=== PATIENT | male | born 1935 | race Two or more races ===

== ENCOUNTER 2025-04-23 18:47 | Emergency (ER) | payer MEDICARE, MEDICAID, SELFPAY ==
[2025-04-23 18:48] VITALS: BP 145/73; PULSE 95; RESP 18; TEMP 36.4; O2SAT 96; BMI 21.7
--- NOTE | 2025-04-23 18:53 | EKG_ITS ---
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
--- NOTE | 2025-04-23 18:53 | XR_ITS ---
Examination: AP chest single view Technique one AP portable sitting chest single view Date and time: April 23 [id number] hrs. Indications: Syncopal episode today. Findings: Mild enlargement cardiac contour Ectatic enlarged thoracic aorta. No pneumonia or pulmonary edema Moderate osteopenia Impression: No pneumonia or pulmonary edema
--- NOTE | 2025-04-23 18:53 | PD.EDADULT ---
ED General RME/HPI General Chief complaint: Weakness Stated complaint: WEAKNESS Time Seen by Provider: 04/23/25 18:52 Arrival date/time: 04/23/25 18:47 CC: Near syncopal episode HPI patient presents to the ER via EMS after being observed pale and pasty in his vehicle when he pulled up to a family gathering. Family was called 911 patient states he has A-fib and diabetes and high blood pressure and takes medications however he states he was lightheaded and dizzy in the car not feeling well. EMS report initially seeing him in such extent with hypotension, during transport the patient became more animated and pressures improved. Currently the patient is awake alert oriented nontoxic-appearing not in any acute distress saying that all the symptoms have resolved. Related Data Previous Rx's ?Medication ?Instructions ?Recorded permethrin 5 % topical cream 1 appln TOP UD ##2 07/07/17 acetaminophen 500 mg capsule 500 mg PO Q6H PRN fever or pain 12/03/17 #30 caps ibuprofen 600 mg tablet 600 mg PO Q8H PRN fever or pain 12/03/17 #30 tabs meclizine 25 mg tablet 25 mg PO BID #14 tabs 02/20/21 meclizine 50 mg tablet (Antivert) 50 mg PO BID PRN vertigo #20 tabs 10/25/23 Allergies Allergy/AdvReac Type Severity Reaction Status Date / Time No Known Allergies Allergy Verified 10/25/23 08:38 Review of Systems Review of Systems Narrative Review of Systems: GEN: No fever, no chills, no weight loss EYES: No discharge, no visual changes, no pain HEENT: No ear pain, no congestion, no sore throat PULM: No shortness of breath, no cough, no congestion CV: No chest pain, no dyspnea on exertion, no palpitations GI: No nausea, no vomiting, no diarrhea, no pain, no constipation : No frequency, no urgency, no dysuria MUSC/SKEL: No joint pain, no back pain SKIN: No rash PSYCH: No hallucinations, no depression HEME/LYMPH: No easy bleeding or bruising tendencies NEURO: + weakness, + dizziness, no headache Past Medical History Past Medical History CARDIAC: Positive Hypercholesterolemia and Hypertension; Negative Congestive Heart Failure RESPIRATORY: Negative Chronic Obstructive Pulmonary Disease (COPD) or Asthma GENITOURINARY: Negative Renal Disease ENDOCRINE: Negative Diabetes Mellitus Type 1 or Diabetes Mellitus Type 2 Social History SMOKING STATUS: Never smoker ED Exam Narrative Physical exam: [General: Obese not in any acute distress Head normocephalic HEENT: Eyes pupils are PERRLA EOMs are intact mouth poor dentition dry swallow symmetrical phonation normal, all of the subsystems of HEENT are within acceptable limits Neck is supple nontender no JVD no edema Chest equal chest rise nontender to palpation Respiratory: Clear to auscultation no wheezes crackles or rubs CV: Rate rhythm is regular no murmurs rubs or clicks Abdomen is distended secondary to body habitus soft nontender no masses positive bowel sounds all 4 quadrants Back: No CVA tenderness no spinous process tenderness from cervical spine thoracic and lumbar spine Skin: Intact no petechiae rash induration ulceration or crepitus Extremities: Moving all extremity against resistance cap refill less than 2 seconds neurosensory intact. No lower extremity edema. Neuro: Awake alert oriented x3 Glascow coma 15 no focal deficits] Course Course Course Narrative: Repeat CMP shows improvement in the renal insufficiency there is no other acute finding patient be discharged home with weakness and renal insufficiency. Quality Measures none Orders Category Date Time Status EKG (ED ONLY) *Do not use* NOW Care 04/23/25 18:53 Completed EKG (ED Only) Stat Exams 04/23/25 18:53 Draft XR chest 1V Stat Exams 04/23/25 18:53 Completed B-Type Natriuretic Peptide Stat Lab 04/23/25 19:33 Completed CBC Stat Lab 04/23/25 19:33 Completed CMP [Comprehensive Metabolic Panel] Stat Lab 04/23/25 22:21 Results Comprehensive Metabolic Panel Stat Lab 04/23/25 19:33 Completed Drug Screen,Urine Stat Lab 04/23/25 20:34 Completed LDH (Lactate Dehydrogenase) Stat Lab 04/23/25 19:33 Completed Magnesium Stat Lab 04/23/25 19:33 Completed Partial Thromboplastin Time Stat Lab 04/23/25 19:33 Completed Prothrombin Time with INR Stat Lab 04/23/25 19:33 Completed Troponin I Stat Lab 04/23/25 19:33 Completed Urinalysis, C/S if Indicated Stat Lab 04/23/25 20:34 Completed Urine Culture Stat Lab 04/23/25 20:34 Received Ringers Lactated 500 ml [Lactated Ringers] 500 ml Med 04/23/25 21:33 Discontinued IV 999 mls/hr Vital Signs Vital signs: Vital Signs Temperature 97.6 F 04/23/25 18:48 Pulse Rate 95 04/23/25 18:48 Respiratory Rate 18 04/23/25 18:48 Blood Pressure 145/73 H 04/23/25 18:48 Pulse Oximetry (%) 96 04/23/25 18:48 Oxygen Delivery Method Nasal Cannula 04/23/25 18:48 Oxygen Flow Rate 6 04/23/25 18:48 Discharge Plan Plan Patient Disposition: HOME (Self Care) Patient condition on transfer: Stable Prescriptions/Referrals Prescriptions/Med Rec: No Action ibuprofen 600 mg tablet 600 mg PO Q8H PRN (Reason: fever or pain) Qty: 30 0RF Rx Instructions: prn pain / fever acetaminophen 500 mg capsule 500 mg PO Q6H PRN (Reason: fever or pain) Qty: 30 0RF permethrin 60 GM cream 1 appln TOP UD Qty: 2 0RF Rx Instructions: Apply from the neck down leave on skin or 12 hours then wash out completely repeat this after 2 weeks. meclizine 25 mg tablet 25 mg PO BID Qty: 14 0RF meclizine [Antivert] 50 mg tablet 50 mg PO BID PRN (Reason: vertigo) Qty: 20 0RF Referrals: Rashad Leal MD [Primary Care Provider, Family Practice] - In 1 week Problem List Clinical Impression: Weakness, Anemia, Renal insufficiency Patient/Caregiver Discharge Instructions Education Materials: Anemia, ED Weakness (Uncertain Cause), ED Renal Insufficiency Additional Instructions: Follow-up promptly with your primary care doctor if there is a worsening of symptoms. Print Language: Greenlandic Stand Alone Forms: Shoshana Award Info., Patient Portal Info Letter PA/LOCAL DRIVER Supervising Physician PA/LOCAL DRIVER Supervising Physician: Frank Thakur ENP [facility] Clinical Information Provided by: patient and EMS Medical Records reviewed [facility] and EMS Meds/Rx considered, not ordered None Labs/Rad/Tests considered, not ordered None Chronic Illness/Social Conditions which may negatively complicate care or outcome(s)-explain: CHF/CAD/Cardiac illness EKG Interpretation EKG #1: EKG Interpretation: EKG performed at 1908 shows a ventricular rate 8 5 NM interval 156 QRS of 142 QTc of 411 sinus rhythm pad artifact in V1. When compared to an old EKG of October 2023 there are no significant changes. Labs Labs: interpreted by id Lab(s) Interpretation(s): CBC shows no leukocytosis and H&H of 10.4 and 30.0 respectively. No thrombocytopenia note last hemoglobin was a year and a half ago and it was 14. Coags show PT 12.3 INR 1.2 PTT of 40.4. CMP shows sodium 134. Creatinine of 1.5. Glucose 133. No transaminitis or T. bili elevation. Troponin is within acceptable limits Medication Administration(s) Medication Administration History Discontinued Medications Lactated Ringer's (Lactated Ringers) 500 mls @ 999 mls/hr IV .Q31M ONE Stop: 04/23/25 22:03 Last Infusion: 04/23/25 22:15 Dose: Infused Documented By: Admin: 04/23/25 21:41 Dose: 999 mls/hr Documented By: CCT
[2025-04-23 19:36] VITALS: PULSE 105; RESP 16; O2SAT 93
[2025-04-23 20:12] LABS: Basophils # (Auto) 0.0 Thou/mm3 (0.0-0.2); Basophils % (Auto) 0 % (0-2.5); Eosinophils # (Auto) 0.0 Thou/mm3 (0.0-0.5); Eosinophils % (Auto) 1 % (0-10); Hematocrit 30.0 % (41.0-53.0); Hemoglobin 10.4 g/dL (13.5-16.0); Immature Granulocytes Auto 0.04 Thou/mm3 (0.00-0.00); Lymphocytes # (Auto) 0.9 Thou/mm3 (1.0-4.8); Lymphocytes % (Auto) 11 % (10-50); Mean Corpuscular HGB Conc 34.7 g/dl (31.0-37.0); Mean Corpuscular Hemoglobin 30.5 pg (25.0-35.0); Mean Corpuscular Volume 88 fL (80-100); Monocytes # (Auto) 1.1 Thou/mm3 (0.0-0.8); Monocytes % (Auto) 13 % (0-12); Neutrophils # (Auto) 6.3 Thou/mm3 (1.8-7.7); Neutrophils % (Auto) 75 % (37-80); Nucleated Red Blood Cell # 0.00 Thou/mm3 (0.00-0.00); Nucleated Red Blood Cell % 0 /100 WBC (0); Platelet Count 208 Thou/mm3 (140-440); RDW Standard Deviation 38.1 fL (35.1-43.9); Red Blood Count 3.41 Miln/mm3 (4.50-5.90); White Blood Count 8.3 Thou/mm3 (3.8-10.6)
[2025-04-23 20:20] LABS: INR 1.2 (0.9-1.3); Partial Thromboplastin Time 40.4 Seconds (22.0-36.0); Prothrombin Time 12.3 Seconds (9.0-12.2)
[2025-04-23 20:34] LABS: Alanine Aminotransferase 8 U/L (10-49); Albumin, Serum 3.7 gm/dL (3.4-4.8); Albumin/Globulin Ratio 1.5 (1.2-2.2); Alkaline Phosphatase 54 U/L (46-116); Anion Gap 10 (7-16); Aspartate Amino Transferase 11 U/L (0-34); BUN/Creatinine Ratio 8 Ratio (12-20); Bilirubin,Total 1.2 mg/dL (0.3-1.2); Blood Urea Nitrogen 12 mg/dL (9-23); Calcium 8.4 mg/dL (8.3-10.6); Calcium (Corrected) 8.6 mg/dL (8.5-10.1); Carbon Dioxide 23.7 mMol/L (20.0-31.0); Chloride 100 mMol/L (98-107); Creatinine (Component) 1.5 mg/dL (0.6-1.3); Estimated Creatinine Clearance 35.6 mL/min (>60); Globulin 2.4 gm/dL (2.3-3.5); Glucose 133 mg/dL (74-106); LDH (Lactate Dehydrogenase) 170 U/L (120-246); Magnesium 1.9 mg/dL (1.6-2.6); Osmolality,Calculated 269 (275-295); Potassium 3.7 mMol/L (3.4-5.1); Sodium 134 mMol/L (136-145); Total Protein 6.1 gm/dL (5.7-8.2); Troponin I < 0.020 ng/mL (0.0-0.045); eGFR 45 See Note
[2025-04-23 20:39] LABS: B-Type Natriuretic Peptide 169 pg/mL (0-100)
[2025-04-23 20:40] LABS: Collection Type, Urine Clean Catch; Squamous Epithelial Cell,Urine 0 /hpf (0-5)
[2025-04-23 20:47] LABS: Bacteria,Urine Rare; Bilirubin,Urine Negative (Negative); Blood,Urine Trace (Negative); Clarity,Urine Turbid (Clear/Hazy); Color,Urine Yellow (Lt Yel-Yel); Glucose, Urine Trace (Negative); Hyaline Casts,Urine 3 /hpf (0-1); Ketones,Urine Trace (Negative); Leukocyte Esterase,Urine Positive (Negative); Nitrite,Urine Negative (Negative); PH,Urine 6.0 (5.0-7.0); Protein,Urine 1+ (Neg - Trace); RBC,Urine 5 /hpf (0-3); Specific Gravity,Urine 1.015 (1.001-1.035); Urobilinogen,Urine Negative mg/dL (0.0-1.0); WBC,Urine 51 /hpf (0-5)
[2025-04-23 20:52] LABS: Amphetamine/Methamp Scrn,U Negative (Negative); Barbiturate Screen,Urine Negative (Negative); Benzodiazepines Screen,Urine Negative (Negative); Benzoylecgonine Screen, Ur Negative (Negative); Fentanyl Screen,Urine Negative (Negative); Opiate Screen,Urine Negative (Negative); THC Screen,Urine Negative (Negative)
[2025-04-23 20:53] LABS: Culture Indicated,Urine Yes
[2025-04-23] MEDS: RINGERS LACTATED 500 ML 500 ML 999 ML IV (21:41)
[2025-04-23 22:45] VITALS: BP 155/99; PULSE 97; RESP 20; TEMP 36.6; O2SAT 98
[2025-04-23 22:58] LABS: Albumin, Serum 3.5 gm/dL (3.4-4.8); Albumin/Globulin Ratio 1.3 (1.2-2.2); Alkaline Phosphatase 55 U/L (46-116); Anion Gap 11 (7-16); Aspartate Amino Transferase 11 U/L (0-34); BUN/Creatinine Ratio 9 Ratio (12-20); Bilirubin,Total 1.0 mg/dL (0.3-1.2); Blood Urea Nitrogen 12 mg/dL (9-23); Calcium 8.5 mg/dL (8.3-10.6); Calcium (Corrected) 8.9 mg/dL (8.5-10.1); Carbon Dioxide 24.5 mMol/L (20.0-31.0); Chloride 100 mMol/L (98-107); Creatinine (Component) 1.4 mg/dL (0.6-1.3); Estimated Creatinine Clearance 38.2 mL/min (>60); Globulin 2.6 gm/dL (2.3-3.5); Glucose 122 mg/dL (74-106); Osmolality,Calculated 270 (275-295); Potassium 3.6 mMol/L (3.4-5.1); Sodium 135 mMol/L (136-145); Total Protein 6.1 gm/dL (5.7-8.2); eGFR 49 See Note
[2025-04-23 23:07] LABS: Alanine Aminotransferase 9 U/L (10-49)
[2025-04-23 23:25] VITALS: BP 161/91; PULSE 87; RESP 18; TEMP 37.2; O2SAT 100
== END 2025-04-23 23:25 | disposition home or self-care (01) ==
PROVIDERS: Registered Nurse General Practice; Emergency Provider Emergency Medicine; PCP Family Medicine
DX: D64.9 Anemia, unspecified (principal); R53.1 Weakness; N28.9 Disorder of kidney and ureter, unspecified; I49.1 Atrial premature depolarization; E78.00 Pure hypercholesterolemia, unspecified; I10 Essential (primary) hypertension; R55 Syncope and collapse
CPT/HCPCS: 36415; 71045; 80053; 80307; 81001; 83615; 83735; 83880; 84484; 85025; 85610; 85730; 87086; 93005; 96360; 99284; J7120

== ENCOUNTER 2025-05-11 08:26 | Emergency (ER) | payer MEDICARE, MEDICAID, SELFPAY ==
[2025-05-11] VITALS (7 sets, daily range): BP systolic 116–187; BP diastolic 64–95; PULSE 63–88; RESP 13–19; TEMP 36.4–36.9; O2SAT 96–99; BMI 26.6
--- NOTE | 2025-05-11 08:49 | XR_ITS ---
Examination: CT abdomen and pelvis without contrast. Coronal 3-D reconstructions. Sagittal 2-D reconstructions. Date and time of exam: May 11, 2025, 0908 hours INDICATIONS: Generalized abdominal pain and diarrhea beginning today CTDI: vol (mGy): 9.29 DLP: (mGycm): 625 Technique: Axial images of the abdomen have been obtained, 3 mm slice thickness Intravenous contrast material has not been administered. Low dose protocols were performed. One or more of the following dose reduction techniques were used; automated exposure control, adjustment of the mA and/or KV according to patient size, use of iterative reconstruction technique. Findings: No focal liver or splenic lesions Distended gallbladder with gallstones Gallbladder wall appears mildly thickened There is fluid lateral to the spleen, measuring up to 23 mm in thickness No splenic laceration No pancreatic or adrenal mass Mild perinephric stranding No renal or ureteral calculi, no hydronephrosis Aortic calcification Normal appendix No bowel obstruction Colonic diverticulosis Free fluid in the pelvis Urinary bladder intact Prostatomegaly AP dimension 3.4 cm with prostate calcifications Contracted urinary bladder Significant osteopenia IMPRESSION: Cholelithiasis, recommend about a biliary sonography to exclude cholecystitis Fluid lateral to the spleen, mild to moderate free fluid in the pelvis, clinical correlation advised Mild perinephric stranding, no renal or ureteral calculi, no hydronephrosis Normal appendix
[2025-05-11] MEDS: SODIUM CHLORIDE 0.9% 1000 ML 1,000 ML 999 ML IV (09:20)
[2025-05-11 09:36] LABS: Basophils # (Auto) 0.0 Thou/mm3 (0.0-0.2); Basophils % (Auto) 0 % (0-2.5); Eosinophils # (Auto) 0.0 Thou/mm3 (0.0-0.5); Eosinophils % (Auto) 0 % (0-10); Hematocrit 34.1 % (41.0-53.0); Hemoglobin 11.4 g/dL (13.5-16.0); Immature Granulocytes Auto 0.02 Thou/mm3 (0.00-0.00); Lymphocytes # (Auto) 0.9 Thou/mm3 (1.0-4.8); Lymphocytes % (Auto) 9 % (10-50); Mean Corpuscular HGB Conc 33.4 g/dl (31.0-37.0); Mean Corpuscular Hemoglobin 30.3 pg (25.0-35.0); Mean Corpuscular Volume 91 fL (80-100); Monocytes # (Auto) 0.3 Thou/mm3 (0.0-0.8); Monocytes % (Auto) 3 % (0-12); Neutrophils # (Auto) 8.6 Thou/mm3 (1.8-7.7); Neutrophils % (Auto) 87 % (37-80); Nucleated Red Blood Cell # 0.00 Thou/mm3 (0.00-0.00); Nucleated Red Blood Cell % 0 /100 WBC (0); Platelet Count 241 Thou/mm3 (140-440); RDW Standard Deviation 39.5 fL (35.1-43.9); Red Blood Count 3.76 Miln/mm3 (4.50-5.90); White Blood Count 9.8 Thou/mm3 (3.8-10.6)
[2025-05-11 09:53] LABS: INR 1.1 (0.9-1.3); Prothrombin Time 11.7 Seconds (9.0-12.2)
[2025-05-11 10:00] LABS: Alanine Aminotransferase 45 U/L (10-49); Albumin, Serum 4.0 gm/dL (3.4-4.8); Albumin/Globulin Ratio 1.8 (1.2-2.2); Alkaline Phosphatase 176 U/L (46-116); Anion Gap 12 (7-16); Aspartate Amino Transferase 40 U/L (0-34); BUN/Creatinine Ratio 11 Ratio (12-20); Bilirubin,Total 1.0 mg/dL (0.3-1.2); Blood Urea Nitrogen 24 mg/dL (9-23); Calcium 9.4 mg/dL (8.3-10.6); Calcium (Corrected) 9.4 mg/dL (8.5-10.1); Carbon Dioxide 26.4 mMol/L (20.0-31.0); Chloride 104 mMol/L (98-107); Creatinine (Component) 2.2 mg/dL (0.6-1.3); Estimated Creatinine Clearance 22.9 mL/min (>60); Globulin 2.2 gm/dL (2.3-3.5); Glucose 186 mg/dL (74-106); Lipase 26 U/L (12-53); Magnesium 2.7 mg/dL (1.6-2.6); Osmolality,Calculated 292 (275-295); Potassium 4.5 mMol/L (3.4-5.1); Sodium 142 mMol/L (136-145); Total Protein 6.2 gm/dL (5.7-8.2); eGFR 28 See Note
--- NOTE | 2025-05-11 12:50 | XR_ITS ---
Examination: Abdomen sonogram, Limited Date and time of exam: May 11, 2025, 12:58 p.m. INDICATIONS: Generalized abdominal pain onset today Technique: Real-time michelle scale transabdominal sonographic images of the upper abdomen obtained. Findings: Gallbladder sludge and stones Gallbladder wall thickening 0.7 cm Common bile duct 0.5 cm Pancreatic head 2.4 cm Liver 15.1 cm fatty infiltration Normal hepatopetal portal venous flow Patent IVC IMPRESSION: Findings most consistent with calculus cholecystitis, consider HIDA scan or MRCP follow-up
[2025-05-11 14:08] LABS: Collection Type, Urine Clean Catch
[2025-05-11 14:46] LABS: Bacteria,Urine Rare; Bilirubin,Urine Negative (Negative); Blood,Urine Negative (Negative); Clarity,Urine Clear (Clear/Hazy); Color,Urine Yellow (Lt Yel-Yel); Glucose, Urine Negative (Negative); Hyaline Casts,Urine 1 /hpf (0-1); Ketones,Urine 1+ (Negative); Leukocyte Esterase,Urine Positive (Negative); Nitrite,Urine Negative (Negative); PH,Urine 6.5 (5.0-7.0); Protein,Urine 1+ (Neg - Trace); RBC,Urine 4 /hpf (0-3); Specific Gravity,Urine 1.026 (1.001-1.035); Squamous Epithelial Cell,Urine < 1 /hpf (0-5); Urobilinogen,Urine Negative mg/dL (0.0-1.0); WBC,Urine 34 /hpf (0-5)
--- NOTE | 2025-05-11 15:07 | PD.EDNV ---
Nausea/Vomit./Diarrhea-RME/HPI General Chief complaint: Nausea/Vomiting/Diarrhea Stated complaint: DIARRHEA/VOMITING Time Seen by Provider: 05/11/25 08:48 Arrival date/time: 05/11/25 08:26 Limitations: no limitations RME / HPI RME / HPI Narrative: 89 year old female with history of hypertension presents to the ED BIBA from home for evaluation of nausea, vomiting, and diarrhea beginning last night. Accompanied by bilateral leg weakness. No other associated symptoms reported. Denies any known modifying factors at home. Denies fevers, chills, chest pain, cough, blood in stool, or urinary symptoms. Related Data Previous Rx's ?Medication ?Instructions ?Recorded permethrin 5 % topical cream 1 appln TOP UD ##2 07/07/17 acetaminophen 500 mg capsule 500 mg PO Q6H PRN fever or pain 12/03/17 #30 caps ibuprofen 600 mg tablet 600 mg PO Q8H PRN fever or pain 12/03/17 #30 tabs meclizine 25 mg tablet 25 mg PO BID #14 tabs 02/20/21 meclizine 50 mg tablet (Antivert) 50 mg PO BID PRN vertigo #20 tabs 10/25/23 ciprofloxacin HCl 500 mg tablet 500 mg PO Q12H UTI #20 tabs 05/11/25 Allergies Allergy/AdvReac Type Severity Reaction Status Date / Time No Known Allergies Allergy Verified 10/25/23 08:38 Review of Systems Review of Systems Systems Reviewed: All systems reviewed, normal except as documented Past Medical History Past Medical History CARDIAC: Positive Cardiac Disorders, Atrial Fibrillation, Hypercholesterolemia and Hypertension RESPIRATORY: Negative Chronic Obstructive Pulmonary Disease (COPD) or Asthma GENITOURINARY: Negative Renal Disease ENDOCRINE: Negative Diabetes Mellitus Type 1 or Diabetes Mellitus Type 2 Social History SMOKING STATUS: Never smoker ED Exam General Limitations: Present no limitations General appearance: Present alert, in no apparent distress and other (Patient appears weak) Head Head exam: Present atraumatic Eye Eye exam: Present normal appearance, PERRL and EOMI ENT ENT exam: Present normal exam, normal oropharynx and mucous membranes moist Neck Neck exam: Present normal inspection, full ROM and trachea midline Chest Chest inspection: Present normal inspection and symmetric chest wall rise Respiratory Respiratory exam: Present normal lung sounds bilaterally Cardiovascular Cardiovascular exam: Present regular rate, normal rhythm and normal heart sounds Abdominal Exam Abdominal exam: Present soft and normal bowel sounds Extremities Exam Extremities exam: Present normal inspection and full ROM Back Exam Back exam: Present normal inspection and full ROM Neurological Exam Neurological exam: Present alert, oriented X3 and CN II-XII intact Psychiatric Psychiatric exam: Present normal affect and normal mood Skin Skin exam: Present warm, dry, intact and normal color Course Quality Measures none Orders Category Date Time Status Intensive Care Unit Nurse STAT Care 05/11/25 08:49 Completed Continuous Pulse Oximetry STAT Care 05/11/25 08:49 Completed Insert IV STAT Care 05/11/25 08:49 Completed NPO STAT Care 05/11/25 08:[address] abdomen pelvis wo con Stat Exams 05/11/25 08:49 Completed US gall bladder Stat Exams 05/11/25 12:50 Completed CBC Stat Lab 05/11/25 09:30 Completed Comprehensive Metabolic Panel Stat Lab 05/11/25 09:30 Completed Lipase Stat Lab 05/11/25 09:30 Completed Magnesium Stat Lab 05/11/25 09:30 Completed Prothrombin Time with INR Stat Lab 05/11/25 09:30 Completed Urinalysis Stat Lab 05/11/25 14:02 Completed Morphine* Inj Med 05/11/25 08:49 Discontinued 2 mg IVP X1 ONE Ondansetron Inj [Zofran Inj] Med 05/11/25 08:49 Discontinued 4 mg IVP Q1H PRN Sodium Chloride 0.9% 1000 ml [Ns] 1,000 ml Med 05/11/25 08:49 Discontinued IV 999 mls/hr [id number] [Rocephin] 2 gm Med 05/11/25 14:28 Discontinued SODIUM CHLORIDE 0.9% (Popper) [Ns 0.9% (P)] 50 ml IV X1 Vital Signs Vital signs: Vital Signs Pulse Rate 63 05/11/25 08:27 Respiratory Rate 19 05/11/25 08:27 Blood Pressure 116/73 05/11/25 08:27 Pulse Oximetry (%) 96 05/11/25 08:27 Oxygen Delivery Method Room Air 05/11/25 08:27 Pulse ox is 96% on room air which is adequate. Nausea/Vomiting/Diarrhea MDM Narrative MDM Narrative:: Terri Finley am scribing for and in the presence of Dr. Guillen. Patient data External records reviewed:: [facility] previous records Clinical information provided by:: patient Social determinants that could affect healthcare access:: none Patient has the following chronic illnesses:: HTN How is presenting disease/condition affected by chronic disease/condition?: exacerbated by Evaluation data The following diagnostics were reviewed and interpreted by me:: lab results and radiology exam(s) Lab and/or radiology exams considered but not ordered:: None Interpretation Summary: Ordering Physician: William Guillen MD Date of Service: 05/11/25 Procedure(s): CT abdomen pelvis wo con Accession Number(s): [id number] cc: William Guillen MD; Ciera Sanders OD; Zev Sibley MD~ Examination: CT abdomen and pelvis without contrast. Coronal 3-D reconstructions. Sagittal 2-D reconstructions. Date and time of exam: May 11, 2025, 0908 hours INDICATIONS: Generalized abdominal pain and diarrhea beginning today CTDI: vol (mGy): 9.29 DLP: (mGycm): 625 Technique: Axial images of the abdomen have been obtained, 3 mm slice thickness Intravenous contrast material has not been administered. Low dose protocols were performed. One or more of the following dose reduction techniques were used; automated exposure control, adjustment of the mA and/or KV according to patient size, use of iterative reconstruction technique. Findings: No focal liver or splenic lesions Distended gallbladder with gallstones Gallbladder wall appears mildly thickened There is fluid lateral to the spleen, measuring up to 23 mm in thickness No splenic laceration No pancreatic or adrenal mass Mild perinephric stranding No renal or ureteral calculi, no hydronephrosis Aortic calcification Normal appendix No bowel obstruction Colonic diverticulosis Free fluid in the pelvis Urinary bladder intact Prostatomegaly AP dimension 3.4 cm with prostate calcifications Contracted urinary bladder Significant osteopenia IMPRESSION: Cholelithiasis, recommend about a biliary sonography to exclude cholecystitis Fluid lateral to the spleen, mild to moderate free fluid in the pelvis, clinical correlation advised Mild perinephric stranding, no renal or ureteral calculi, no hydronephrosis Normal appendix Dictated By: Zev Sibley MD Signed By: <Electronically signed by Zev Sibley MD in OV> 05/11/25 1013 Ordering Physician: William Guillen MD Date of Service: 05/11/25 Procedure(s): US gall bladder Accession Number(s): [id number] cc: William Guillen MD; Ciera Sanders OD; Zev Sibley MD~ Examination: Abdomen sonogram, Limited Date and time of exam: May 11, 2025, 12:58 p.m. INDICATIONS: Generalized abdominal pain onset today Technique: Real-time michelle scale transabdominal sonographic images of the upper abdomen obtained. Findings: Gallbladder sludge and stones Gallbladder wall thickening 0.7 cm Common bile duct 0.5 cm Pancreatic head 2.4 cm Liver 15.1 cm fatty infiltration Normal hepatopetal portal venous flow Patent IVC IMPRESSION: Findings most consistent with calculus cholecystitis, consider HIDA scan or MRCP follow-up Dictated By: Zev Sibley MD Signed By: <Electronically signed by Zev Sibley MD in OV> 05/11/25 1323 Medications / Prescriptions Medications / Prescriptions considered but not ordered:: None Medication administrations:: Medication Administration History Discontinued Medications Sodium Chloride (Ns) 1,000 mls @ 999 mls/hr IV .Q1H1M ONE Stop: 05/11/25 09:49 Last Infusion: 05/11/25 10:21 Dose: Infused Documented By: Admin: 05/11/25 09:20 Dose: 999 mls/hr Documented By: KEVIN Ceftriaxone Sodium 2 gm/ (Sodium Chloride) 50 mls @ 100 mls/hr IV X1 ONE Stop: 05/11/25 14:57 Last Infusion: 05/11/25 15:43 Dose: Infused Documented By: Admin: 05/11/25 15:13 Dose: 100 mls/hr Documented By: KEVIN Morphine Sulfate (Morphine Sulf Inj 4 Mg/Ml Vial) 2 mg IVP X1 ONE Stop: 05/11/25 08:50 Last Admin: 05/11/25 09:45 Dose: Not Given Documented By: KEVIN Non-Admin Reason: Change of Condition Ondansetron HCl (Ondansetron Inj 2 Mg/Ml Inj 2 Ml) 4 mg IVP Q1H PRN PRN Reason: PERSISTENT NAUSEA OR VOMITING See above Consultations Consultation(s) initiated? (list below): No Diagnosis Nausea Differential Diagnosis: food poisoning, gastroenteritis, drug-induced nausea and vomiting and dehydration Most likely diagnosis given after review of the tests above:: UTI Acute dehydration Admission Indicated Admission indicated?: not indicated Admission Request Was there a request for admission?: No Disposition Plan Disposition Plan: Discharge Discharge Attestation Discharge Attestation: The patient and all family members were given an opportunity to ask questions and understood the discharge instructions. Discharge instructions specifically effects, indications for sooner follow up or return to the emergency department, and the expected course of current diagnosis. Patient condition: Stable Discharge Plan Plan Patient Disposition: HOME (Self Care) Patient condition on transfer: Stable Prescriptions/Referrals Prescriptions/Med Rec: New ciprofloxacin HCl 500 mg tablet 500 mg PO Q12H MDD 2 Qty: 20 0RF No Action ibuprofen 600 mg tablet 600 mg PO Q8H PRN (Reason: fever or pain) Qty: 30 0RF Rx Instructions: prn pain / fever acetaminophen 500 mg capsule 500 mg PO Q6H PRN (Reason: fever or pain) Qty: 30 0RF permethrin 60 GM cream 1 appln TOP UD Qty: 2 0RF Rx Instructions: Apply from the neck down leave on skin or 12 hours then wash out completely repeat this after 2 weeks. meclizine 25 mg tablet 25 mg PO BID Qty: 14 0RF meclizine [Antivert] 50 mg tablet 50 mg PO BID PRN (Reason: vertigo) Qty: 20 0RF Referrals: Ciera Sanders OD [Primary Care Provider] - In 1 week Problem List Clinical Impression: UTI (urinary tract infection), Acute dehydration Patient/Caregiver Discharge Instructions Discharge Activity: activity as tolerated Education Materials: Urinary Tract Infections in Men, Dehydration Additional Instructions: Please take your medication as directed. Please also increase the amount of water you drink each day. Please drink an additional 3 cups of water and a from what you are doing. Follow-up with your doctor next week. Print Language: Estonian Stand Alone Forms: Shoshana Award Info., Patient Portal Info Letter
[2025-05-11] MEDS: cefTRIAXone 2 GM in SODIUM CHLORIDE 0.9% (Popper) 50 ML IV (15:13)
== END 2025-05-11 16:22 | disposition home or self-care (01) ==
PROVIDERS: Emergency Provider Family Medicine; PCP Optometrist
DX: N39.0 Urinary tract infection, site not specified (principal); E86.0 Dehydration; I10 Essential (primary) hypertension; K80.20 Calculus of gallbladder without cholecystitis without obstruction; R18.8 Other ascites
CPT/HCPCS: 36415; 74176; 76705; 80053; 81001; 83690; 83735; 85025; 85610; 96361; 96365; 99283; J0696; J7030; J7050

== ENCOUNTER 2025-06-06 17:54 | Observation (INO) | payer MEDICARE, MEDICAID, SELFPAY ==
[2025-06-06 17:57] VITALS: PULSE 84; RESP 16; O2SAT 90; BMI 23.5
--- NOTE | 2025-06-06 17:58 | PC.NURSE ---
Pt. here from home to room 4, pt. states he has leg pain for weeks, pt. states his legs just give out, pt. states this is his 2nd visit for leg pain. No s/s of distress noted at this time.
[2025-06-06 18:14] VITALS: BP 104/55; PULSE 56; RESP 18; TEMP 36.6; O2SAT 100
--- NOTE | 2025-06-06 18:33 | PD.EDWEAK ---
ED Weakness RME/HPI General Chief complaint: Neuro Symptoms/Deficit Stated complaint: WEAKNESS Time Seen by Provider: 06/06/25 18:33 Arrival date/time: 06/06/25 17:54 RME / HPI RME / HPI Narrative: DR. FERRARO MAIN ED EVALUATION: Patient presenting with progressive left greater than right-sided weakness over the last several months duration, with profound weakness to the LUE earlier today for several hours and spontaneous resolution. Patient recently on ABX for UTI. No recent fevers, chills, vomiting, or diarrhea. Denies URI or cough. Unable to assume upright position earlier today due to weakness. PMH: Hypercholesterolemia, HTN, Atrial Fibrillation PSH: None Allergies: NKDA Social: Remote tobacco user, no alcohol or illicit drug abuse Related Data Previous Rx's ?Medication ?Instructions ?Recorded permethrin 5 % topical cream 1 appln TOP UD ##2 07/07/17 acetaminophen 500 mg capsule 500 mg PO Q6H PRN fever or pain 12/03/17 #30 caps ibuprofen 600 mg tablet 600 mg PO Q8H PRN fever or pain 12/03/17 #30 tabs meclizine 25 mg tablet 25 mg PO BID #14 tabs 02/20/21 meclizine 50 mg tablet (Antivert) 50 mg PO BID PRN vertigo #20 tabs 10/25/23 ciprofloxacin HCl 500 mg tablet 500 mg PO Q12H UTI #20 tabs 05/11/25 Allergies Allergy/AdvReac Type Severity Reaction Status Date / Time No Known Allergies Allergy Verified 06/06/25 18:06 Review of Systems Review of Systems Systems Reviewed: All systems reviewed, normal except as documented Past Medical History Past Medical History CARDIAC: Positive Atrial Fibrillation, Hypercholesterolemia and Hypertension ED Exam Narrative Physical exam: GEN. APPEARANCE: The patient is alert awake oriented X-3 under no distress, lying down comfortably, chronically ill-appearing. Patient has good eye contact. Patient is cooperative. VITALS: All vitals were reviewed and the pulse ox is 100% on 2L/min via NC, which is normal according to my interpretation HEENT: Normocephalic, atraumatic and nontender. Pupils are equal and reactive. Oral mucosa is moist. NECK: Supple, nontender, no meningismus, no JVD. There is no thyromegaly and no lymphadenopathy. CHEST: Nontender on palpation no deformity and no crepitus. CARDIOVASCULAR: Heart regular rhythm, no murmur or gallop rub or extra beats. LUNGS: Clear to auscultation bilaterally with symmetrical chest rise. No laboring tachypnea or wheezing. No intercostal subcostal retraction. No rales and no rhonchi. ABDOMEN: Soft, flat, nontender to palpation, no guarding or rebound tenderness. There are no abnormal masses palpated. No pulsatile masses or bruits. Active and normal bowel sounds. EXTREMITIES: Normal inspection and palpation. No edema. No cyanosis. Patient is able to move all 4 extremities well SKIN: Warm and dry, no rashes noted. MUSCULOSKELETAL: No lumbar or midline bony tenderness. There is no CVA tenderness. No paraspinal muscle spasm or tenderness. NEURO: Cranial nerves II through XII grossly intact. Motor strength of BUE 5/5, motor strength BLE 4/5 hyperflexic at L-4, mute at S-1, relfex sensory intact, negative straight leg test, left clonus. PSYCHIATRIC: Patient is in normal mood and affect, cooperative. LYMPHATICS: No major lymphadenopathy noted. Course Quality Measures none Orders Category Date Time Status CT head/brain wo con Stat Exams 06/06/25 18:40 Completed CBC [CBC] Stat Lab 06/06/25 18:30 Completed CMP [Comprehensive Metabolic Panel] Stat Lab 06/06/25 18:30 Completed TSH [Thyroid Stimulating Hormone] Stat Lab 06/06/25 18:30 Completed Urinalysis, C/S if Indicated Stat Lab 06/06/25 20:13 Completed Sodium Chloride 0.9% 1000 ml [Ns] 1,000 ml Med 06/06/25 23:31 Active IV 999 mls/hr Vital Signs Vital signs: Vital Signs Temperature 97.8 F 06/06/25 18:14 Pulse Rate 56 L 06/06/25 18:14 Respiratory Rate 18 06/06/25 18:14 Blood Pressure 104/55 L 06/06/25 18:14 Pulse Oximetry (%) 100 06/06/25 18:14 Oxygen Delivery Method Nasal Cannula 06/06/25 18:14 Oxygen Flow Rate 2 06/06/25 18:14 Weakness MDM Narrative MDM Narrative:: Scribe Attestation: I, Shelly Jean, am scribing for and in the presence of Dr. Richard. Provider Notation: Although this document has been carefully reviewed, there may still be some phonetic and other typographical errors. These errors are purely grammatical due to imperfections in the software program and should not be construed in any way to compromise the substance of the patient's medical care during this visit. Patient presenting with progressive left greater than right-sided weakness over the last several months duration, with profound weakness to the LUE earlier today for several hours and spontaneous resolution. Patient recently on ABX for UTI. Please see PE findings. Laboratory markers, including CBC, demonstrate normal WBC of 6.3 with stable hemoglobin at 10.4 and normal platelet count. Serum chemistries demonstrate declining renal function (38 - 04/23/25). UA equivocal for infection. Patient underwent CT brain which was additionally unremarkable for acute event. Patient remained neurologically intact throughout ED course. Will consult with hospitalist for acute on chronic renal insufficiency. Patient data External records reviewed:: [facility] previous records (Reviewed prior ED records from 05/11/25. Patient was seen for Acute dehydration.) and EMS form Clinical information provided by:: patient and EMS Social determinants that could affect healthcare access:: none Patient has the following chronic illnesses:: Hypercholesterolemia, HTN, Atrial Fibrillation How is presenting disease/condition affected by chronic disease/condition?: exacerbated by Evaluation data The following diagnostics were reviewed and interpreted by me:: lab results and radiology exam(s) Lab and/or radiology exams considered but not ordered:: None Interpretation Summary: RADIOLOGY Head/Brain CT: Findings: No significant ventricular enlargement. Intra-axial or extra-axial hemorrhage density is not seen. No mass effect or midline shift Basal cisterns are not remarkable. Fourth ventricle is midline. Cranial vault intact. 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 (list below): Yes Consultation #1 (Physician, Specialty, Details): Discussed with resident physician for admission. Reviewed the patient?s HPI, PMHx, lab and/or radiology results. Discussed treatment plan. Will consult an admission to the hospitalist. Time: 23:54 Diagnosis Weakness Differential Diagnosis: acute myocardial infarction, anemia, hypoglycemia, hypothyroidism, rhabdomyolysis, sepsis, dehydration and other (CVA, TIA) Most likely diagnosis given after review of the tests above:: Acute on chronic renal failure Admission Indicated Admission indicated?: indicated Explain why admission is indicated or not indicated:: Acute on chronic renal failure Admission Request Was there a request for admission?: Yes Admission Attestation Admission request attestation: Discussed case with [] from Hospitalist service regarding admission. Discussed patients ED course, exam findings, labs, and radiology results. The Hospitalist [agrees,declines] to accept the patient for admission. Disposition Plan Disposition Plan: Admit Discharge Plan Plan Patient Disposition: Admit Acute Care w/in Hospital Prescriptions/Referrals Prescriptions/Med Rec: No Action ibuprofen 600 mg tablet 600 mg PO Q8H PRN (Reason: fever or pain) Qty: 30 0RF Rx Instructions: prn pain / fever acetaminophen 500 mg capsule 500 mg PO Q6H PRN (Reason: fever or pain) Qty: 30 0RF permethrin 60 GM cream 1 appln TOP UD Qty: 2 0RF Rx Instructions: Apply from the neck down leave on skin or 12 hours then wash out completely repeat this after 2 weeks. meclizine 25 mg tablet 25 mg PO BID Qty: 14 0RF meclizine [Antivert] 50 mg tablet 50 mg PO BID PRN (Reason: vertigo) Qty: 20 0RF ciprofloxacin HCl 500 mg tablet 500 mg PO Q12H MDD 2 Qty: 20 0RF Referrals: No Primary/Family,Physician [Primary Care Provider] - In 1 week Problem List Clinical Impression: Acute on chronic renal failure Patient/Caregiver Discharge Instructions Print Language: Lao Stand Alone Forms: [facility] Award Info., Patient Portal Info Letter
--- NOTE | 2025-06-06 18:40 | XR_ITS ---
Examination: CT brain head without contrast. 2-D sagittal coronal reconstructions Date and time of exam: June 06, 2025, 1932 hours INDICATIONS: Weakness altered mental status today CTDI: vol (mGy): 53.1 DLP: (mGycm): 1151 Technique: Multiple CT axial sections of the brain have been obtained, 5 mm slice thickness. Contrast has not been administered. 2-D sagittal, coronal reconstructions have been obtained Low dose protocols were performed. One or more of the following dose reduction techniques were used; automated exposure control, adjustment of the mA and/or KV according to patient size, use of iterative reconstruction technique. Findings: No significant ventricular enlargement. Intra-axial or extra-axial hemorrhage density is not seen. No mass effect or midline shift Basal cisterns are not remarkable. Fourth ventricle is midline. Cranial vault intact. 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
[2025-06-06 18:53] LABS: Basophils # (Auto) 0.0 Thou/mm3 (0.0-0.2); Basophils % (Auto) 0 % (0-2.5); Eosinophils # (Auto) 0.2 Thou/mm3 (0.0-0.5); Eosinophils % (Auto) 3 % (0-10); Hematocrit 31.0 % (41.0-53.0); Hemoglobin 10.4 g/dL (13.5-16.0); Immature Granulocytes Auto 0.03 Thou/mm3 (0.00-0.00); Lymphocytes # (Auto) 1.3 Thou/mm3 (1.0-4.8); Lymphocytes % (Auto) 21 % (10-50); Mean Corpuscular HGB Conc 33.5 g/dl (31.0-37.0); Mean Corpuscular Hemoglobin 30.4 pg (25.0-35.0); Mean Corpuscular Volume 91 fL (80-100); Monocytes # (Auto) 0.5 Thou/mm3 (0.0-0.8); Monocytes % (Auto) 7 % (0-12); Neutrophils # (Auto) 4.3 Thou/mm3 (1.8-7.7); Neutrophils % (Auto) 68 % (37-80); Nucleated Red Blood Cell # 0.00 Thou/mm3 (0.00-0.00); Nucleated Red Blood Cell % 0 /100 WBC (0); Platelet Count 146 Thou/mm3 (140-440); RDW Standard Deviation 41.5 fL (35.1-43.9); Red Blood Count 3.42 Miln/mm3 (4.50-5.90); White Blood Count 6.3 Thou/mm3 (3.8-10.6)
[2025-06-06 19:08] VITALS: BP 102/62; PULSE 61; RESP 14; O2SAT 95
[2025-06-06 19:11] LABS: Alanine Aminotransferase 10 U/L (10-49); Albumin, Serum 4.2 gm/dL (3.4-4.8); Albumin/Globulin Ratio 2.0 (1.2-2.2); Alkaline Phosphatase 59 U/L (46-116); Anion Gap 12 (7-16); Aspartate Amino Transferase 16 U/L (0-34); BUN/Creatinine Ratio 7 Ratio (12-20); Bilirubin,Total 1.0 mg/dL (0.3-1.2); Blood Urea Nitrogen 20 mg/dL (9-23); Calcium 9.7 mg/dL (8.3-10.6); Calcium (Corrected) 9.7 mg/dL (8.5-10.1); Carbon Dioxide 20.0 mMol/L (20.0-31.0); Chloride 107 mMol/L (98-107); Creatinine (Component) 2.9 mg/dL (0.6-1.3); Estimated Creatinine Clearance 19.1 mL/min (>60); Globulin 2.1 gm/dL (2.3-3.5); Glucose 124 mg/dL (74-106); Osmolality,Calculated 281 (275-295); Potassium 4.5 mMol/L (3.4-5.1); Sodium 139 mMol/L (136-145); Thyroid Stimulating Hormone 5.20 uIU/mL (0.55-4.78); Total Protein 6.3 gm/dL (5.7-8.2); eGFR 20 See Note
[2025-06-06 20:21] LABS: Collection Type, Urine Clean Catch
[2025-06-06 20:30] LABS: Bacteria,Urine Rare; Bilirubin,Urine Negative (Negative); Blood,Urine Negative (Negative); Clarity,Urine Clear (Clear/Hazy); Color,Urine Yellow (Lt Yel-Yel); Culture Indicated,Urine Not Indicated; Glucose, Urine Negative (Negative); Hyaline Casts,Urine 1 /hpf (0-1); Ketones,Urine Negative (Negative); Leukocyte Esterase,Urine Positive (Negative); Nitrite,Urine Negative (Negative); PH,Urine 5.5 (5.0-7.0); Protein,Urine Trace (Neg - Trace); RBC,Urine 2 /hpf (0-3); Specific Gravity,Urine 1.018 (1.001-1.035); Squamous Epithelial Cell,Urine 1 /hpf (0-5); Urobilinogen,Urine Negative mg/dL (0.0-1.0); WBC,Urine 6 /hpf (0-5)
[2025-06-06 23:08] VITALS: BP 131/71; PULSE 63; RESP 19; TEMP 36.6; O2SAT 100
[2025-06-06] MEDS: SODIUM CHLORIDE 0.9% 1000 ML 1,000 ML 999 ML IV (23:35)
--- NOTE | 2025-06-06 23:39 | PC.NURSE ---
patients mother at father at bedside. family updated with patient care.
[2025-06-07] VITALS (10 sets, daily range): BP systolic 93–151; BP diastolic 56–84; PULSE 56–78; RESP 14–19; TEMP 35.7–37.1; O2SAT 95–98; BMI 23.5; BMI 13.0
--- NOTE | 2025-06-07 00:36 | XR_ITS ---
Examination: Retroperitoneal ultrasound, complete Technique: Multiple high resolution grayscale images of the retroperitoneum obtained, including kidneys and bladder. Exam date and time: June 07, 2025, 0139 hours INDICATIONS: Acute renal insufficiency on laboratory examination today. FINDINGS: Right kidney 10.1 cm renal cortex 1.8 cm Left kidney 8.9 cm cortex 1.4 cm Moderate renal scar formation No hydronephrosis No diagnostic visualization bladder IMPRESSION: Small left kidney Bilateral renal cortical thinning Moderate bilateral renal parenchymal scar formation No hydronephrosis
--- NOTE | 2025-06-07 00:52 | ESHP_ITS ---
<Statement entered by Devin Dobbs MD - 06/07/25 06:18> I have discussed and was present for the essential components of the history, physical examination, diagnosis, and treatment plan with the resident. I agree with the patient's care as documented by the resident and amended herein by me. Devin Dobbs MD FACP. Documentation for date of: 06/07/25 HPI History of Present Illness History of present illness: 89-year-old male with a history of hypercholesterolemia and hypertension presents with worsening progressive lower extremity weakness and balance issues over the past several months. He reports profound weakness in the left lower extremity earlier today, which prevented him from getting up from a chair and prompted the ED visit. Two weeks ago, the patient had a ground-level fall at home, hitting his head without loss of consciousness. He remained on the ground for approximately 5?10 minutes before being assisted up. Patient normally uses a walker, denies any current urinary tract symptoms, and recently completed a course of antibiotics for a urinary tract infection. He also denies recent fevers, chills, vomiting, diarrhea, upper respiratory symptoms, or cough. Additionally, he reports no cardiac issues and has no history of atrial fibrillation. ED course: Initial vitals include T97.8, BP 104/55, HR 56, RR 18, O2 sat 100% on 2 L NC. Notable labs include WBC 6.3, hemoglobin 10.4, platelets 146, sodium 136, potassium 4.5, creatinine 2.9, glucose 124 LFTs within normal range, TSH 5.2. CT head negative for acute hemorrhage, mass effect or midline shift. Past medical history: As stated above. Allergies: NKDA. Family history: Noncontributory. Social history: No alcohol use, remote former smoker, no illicit drug use. Patient admitted under observation for NIKA and balance issues. Review of Systems Review of Systems Narrative Review of Systems: All systems reviewed negative unless stated otherwise above. Exam Vital Signs Temp Pulse Resp BP Pulse Ox O2 Del Method O2 Flow Rate 97.8 F 63 19 131/71 H 100 Room Air 2 06/06/25 23:08 06/06/25 23:08 06/06/25 23:08 06/06/25 23:08 06/06/25 23:08 06/06/25 23:08 06/06/25 18:14 Narrative Exam General: AOx3, no acute distress, able to speak full sentences, Turkish speaking HEENT: NC/AT, mucous membranes moist, bilateral sclera anicteric Cardiovascular: regular rate and rhythm, S1/S2 present, no murmurs appreciated Pulmonary: clear to auscultation bilaterally, no rales/rhonchi/wheezes Abdominal: soft, non-tender, non-distended, no rebound/guarding, normal bowel sounds present Musculoskeletal: normal ROM, no peripheral edema, bilateral lower extremities strength 4 out of 5, bilateral upper extremities strength 5 out of 5 Plan Skin: Extremities cold and dry, intact, no rashes, Neuro: CN II-XII intact, no focal deficits Results: Labs 06/06/25 18:30 06/07/25 01:24 Labs: Short CBC 06/06/25 Range/Units 18:30 WBC 6.3 (3.8-10.6) Thou/mm3 Hgb 10.4 L (13.5-16.0) g/dL Hct 31.0 L (41.0-53.0) % Plt Count 146 D (140-440) Thou/mm3 BMP 06/06/25 18:30 Sodium 139 Potassium 4.5 Chloride 107 Carbon Dioxide 20.0 BUN 20 Creatinine 2.9 H Glucose 124 H Calcium 9.7 Liver Function 06/06/25 Range/Units 18:30 Total Bilirubin 1.0 (0.3-1.2) mg/dL AST 16 (0-34) U/L ALT 10 (10-49) U/L Alkaline Phosphatase 59 (46-116) U/L Albumin 4.2 (3.4-4.8) gm/dL Urine 06/06/25 Range/Units 20:13 Urine Color Yellow (Lt Yel-Yel) Urine Clarity Clear (Clear/Hazy) Urine pH 5.5 (5.0-7.0) Ur Specific [place] 1.018 (1.001-1.035) Urine Protein Trace (Neg - Trace) Urine Glucose (UA) Negative (Negative) Quality Measures Quality Measures none Advance care planning discussed with:: patient Medications Home Medications and Allergies Allergies Allergy/AdvReac Type Severity Reaction Status Date / Time No Known Allergies Allergy Verified 06/06/25 18:06 Visit Medications Acetaminophen (Acetaminophen 325 Mg Tablet) 650 mg PO Q6H PRN PRN Reason: PAIN (1-3) OR FEVER > 100.4 Stop: 07/07/25 00:38 Heparin Sodium (Porcine) (Heparin Sod Inj 5000 Unit/Ml Vial) 5,000 unit SC Q8HR [facility] Stop: 06/21/25 00:44 Lactated Ringer's (Lactated Ringers) 1,000 mls @ 75 mls/hr IV .[id number] [facility] Stop: 06/07/25 14:04 Ondansetron HCl (Ondansetron Inj 2 Mg/Ml Inj 2 Ml) 4 mg IVP Q6H PRN; Protocol PRN Reason: NAUSEA OR VOMITING Stop: 07/07/25 00:38 Discontinued Medications Sodium Chloride (Ns) 1,000 mls @ 999 mls/hr IV .Q1H1M ONE Stop: 06/07/25 00:31 Last Admin: 06/06/25 23:35 Dose: 999 mls/hr Assessment & Plan Plan 89-year-old male with a history of hypercholesterolemia and hypertension presents with worsening progressive lower extremity weakness and balance issues over the past several months. Patient admitted under observation for NIKA and balance issues. #NIKA DDx prerenal (dehydration) versus intrarenal (ATN, AIN) versus postrenal (obstructive, BPH) Patient mentions has been hydrating well Volume status euvolemic Patient has no problem urinating Per patient has no prior kidney issues Creatinine on admission 2.9, unsure what baseline creatinine UA leuk positive, WBC 6, patient having no urinary symptoms Bladder scan showed 81 cc of urine In ED patient received 1 L of NaCl Plan ? Urine sodium and osmolarity ordered ? Renal ultrasound ordered ? LR 75 cc an hour x 1 bag, then reassess ? Renally dose medications ? Avoid nephrotoxic agents #Lower extremity weakness #Balance issues Ongoing for the last several months, unsure when it started exactly However today get out of chair which prompted ED visit On physical exam bilateral lower extremities strength 4 out of 5, bilateral upper extremities strength 5 out of 5 Orthostatic vitals negative Plan ? Physical therapy referral #History of HLD #History of HTN ?Pending med recon, resume once confirmed Health Maintenance: Diet: Regular GI prophylaxis: None DVT prophylaxis: Heparin 5000u SC every 8 hours Antibiotics: None CODE STATUS: DNR Disposition: MedSur Case discussed with my attending Dr. Dobbs, and senior resident, Dr. Jovi Calixto MD PGY-1
[2025-06-07] MEDS: RINGERS LACTATED 1000 ML 1,000 ML 100 ML IV (01:33)
[2025-06-07] MEDS: HEPARIN SOD INJ 5000 UNIT/ML VIAL SC ×4 (01:34→21:17)
[2025-06-07 01:45] LABS: Anion Gap 12 (7-16); BUN/Creatinine Ratio 11 Ratio (12-20); Blood Urea Nitrogen 31 mg/dL (9-23); Calcium 8.5 mg/dL (8.3-10.6); Carbon Dioxide 19.3 mMol/L (20.0-31.0); Chloride 110 mMol/L (98-107); Creatinine (Component) 2.9 mg/dL (0.6-1.3); Estimated Creatinine Clearance 19.1 mL/min (>60); Glucose 107 mg/dL (74-106); Osmolality,Calculated 287 (275-295); Potassium 4.9 mMol/L (3.4-5.1); Sodium 141 mMol/L (136-145); eGFR 20 See Note
[2025-06-07 02:09] LABS: Sodium,Urine Random 23.3 mMol/L (20.0-110.0)
--- NOTE | 2025-06-07 02:13 | PC.NURSE ---
FAMILY CONTACT INFORMATION. GRANDDAUGHTER FREDY- [phone]
--- NOTE | 2025-06-07 02:19 | PRELIM_ITS ---
Renal/Retroperitoneal ultrasound. June 07, 2025 0139 hours Clinical history: Acute kidney injury Technique: Duplex scan of the bilateral renal arterial and venous tree was performed utilizing 2D grayscale imaging, Doppler spectral analysis and color flow. Comparison: No prior study is available for comparison. Findings: Right and left kidneys are 10.1 and 8.9 cm long respectively. Right and left renal cortical thickness is 1.8 and 1.4 cm respectively. No hydronephrosis, mass or calculi are seen bilaterally. Impression: Atrophic left kidney. No acute process. Report Electronically Signed By: Tyler Bella 06/07/2025 2:19:09 AM [EST]
[2025-06-07 05:51] LABS: Basophils # (Auto) 0.0 Thou/mm3 (0.0-0.2); Basophils % (Auto) 0 % (0-2.5); Eosinophils # (Auto) 0.2 Thou/mm3 (0.0-0.5); Eosinophils % (Auto) 3 % (0-10); Hematocrit 31.7 % (41.0-53.0); Hemoglobin 10.5 g/dL (13.5-16.0); Immature Granulocytes Auto 0.03 Thou/mm3 (0.00-0.00); Lymphocytes # (Auto) 1.9 Thou/mm3 (1.0-4.8); Lymphocytes % (Auto) 29 % (10-50); Mean Corpuscular HGB Conc 33.1 g/dl (31.0-37.0); Mean Corpuscular Hemoglobin 30.0 pg (25.0-35.0); Mean Corpuscular Volume 91 fL (80-100); Monocytes # (Auto) 0.5 Thou/mm3 (0.0-0.8); Monocytes % (Auto) 8 % (0-12); Neutrophils # (Auto) 3.8 Thou/mm3 (1.8-7.7); Neutrophils % (Auto) 60 % (37-80); Nucleated Red Blood Cell # 0.00 Thou/mm3 (0.00-0.00); Nucleated Red Blood Cell % 0 /100 WBC (0); Platelet Count 120 Thou/mm3 (140-440); RDW Standard Deviation 41.8 fL (35.1-43.9); Red Blood Count 3.50 Miln/mm3 (4.50-5.90); White Blood Count 6.4 Thou/mm3 (3.8-10.6)
[2025-06-07 06:16] LABS: Alanine Aminotransferase 8 U/L (10-49); Albumin, Serum 3.8 gm/dL (3.4-4.8); Albumin/Globulin Ratio 2.2 (1.2-2.2); Alkaline Phosphatase 54 U/L (46-116); Anion Gap 13 (7-16); Aspartate Amino Transferase 14 U/L (0-34); BUN/Creatinine Ratio 12 Ratio (12-20); Bilirubin,Total 0.9 mg/dL (0.3-1.2); Blood Urea Nitrogen 34 mg/dL (9-23); Calcium 8.7 mg/dL (8.3-10.6); Calcium (Corrected) 8.9 mg/dL (8.5-10.1); Carbon Dioxide 21.0 mMol/L (20.0-31.0); Chloride 109 mMol/L (98-107); Creatinine (Component) 2.8 mg/dL (0.6-1.3); Estimated Creatinine Clearance 19.8 mL/min (>60); Free T4 (Free Thyroxine) 1.40 ng/dL (0.89-1.76); Globulin 1.7 gm/dL (2.3-3.5); Glucose 102 mg/dL (74-106); Magnesium 2.2 mg/dL (1.6-2.6); Osmolality,Calculated 292 (275-295); Phosphorous 3.4 mg/dL (2.4-5.1); Potassium 4.8 mMol/L (3.4-5.1); Sodium 143 mMol/L (136-145); Total Protein 5.5 gm/dL (5.7-8.2); eGFR 21 See Note
--- NOTE | 2025-06-07 07:00 | EKG_ITS ---
[facility] Test Date: 2025-06-07 Pat Name: MERRILL DASH Department: Room: - Gender: Male [employer]: : [id number] Requested By: Juan Calixto Order Number: [id number] Reading MD: Juan Calixto Measurements Intervals [place] Rate: 67 P: 15 CA: 181 QRS: 17 QRSD: 140 T: -6 QT: 415 QTc: 441 Interpretive Statements SINUS RHYTHM WITH OCCASIONAL SUPRAVENTRICULAR PREMATURE COMPLEXES INTRAVENTRICULAR CONDUCTION DELAY [130+ ms QRS DURATION] Compared to ECG 04/23/2025 19:08:16 No significant changes /store/S0/[id number]
--- NOTE | 2025-06-07 11:50 | ESPR_ITS ---
Documentation for date of: 06/07/25 Subjective Subjective Interval history: Patient seen at bedside; feels generally weak. No dizziness reported today but states ?sometimes feels lightheaded? when getting up at home. No chest pain, no shortness of breath, no palpitations. No dysuria, no difficulty urinating. No nausea, vomiting, fever, or chills. Asking when he can walk with PT. Exam Vital Signs Temp Pulse Resp BP Pulse Ox O2 Del Method O2 Flow Rate 96.2 F L 65 18 117/60 95 Room Air 2 06/07/25 11:35 06/07/25 11:35 06/07/25 11:35 06/07/25 11:35 06/07/25 11:35 06/07/25 11:35 06/07/25 04:00 Narrative Exam General: AOx3, no acute distress, able to speak full sentences, Somali speaking HEENT: NC/AT, mucous membranes moist, bilateral sclera anicteric Cardiovascular: regular rate and rhythm, S1/S2 present, no murmurs appreciated Pulmonary: clear to auscultation bilaterally, no rales/rhonchi/wheezes Abdominal: soft, non-tender, non-distended, no rebound/guarding, normal bowel sounds present Musculoskeletal: normal ROM, no peripheral edema, bilateral lower extremities strength 4 out of 5, bilateral upper extremities strength 5 out of 5 Skin: Extremities cold and dry, intact, no rashes, Neuro: CN II-XII intact, no focal deficits Objective Labs 06/07/25 04:36 06/07/25 04:36 Labs: Laboratory Results - last 24 hr 06/06/25 06/06/25 06/07/25 18:30 20:13 00:00 WBC 6.3 RBC 3.42 L Hgb 10.4 L Hct 31.0 L MCV 91 MCH 30.4 MCHC 33.5 RDW Std Deviation 41.5 Plt Count 146 D Neut % (Auto) 68 Lymph % (Auto) 21 [place] % (Auto) 7 Eos % (Auto) 3 Baso % (Auto) 0 Neut # (Auto) 4.3 Lymph # (Auto) 1.3 [place] # (Auto) 0.5 Eos # (Auto) 0.2 Baso # (Auto) 0.0 Immature Gran # (Auto) 0.03 H Absolute Nucleated RBC 0.00 Immature Gran % 1 H Nucleated RBC % 0 Sodium 139 Potassium 4.5 Chloride 107 Carbon Dioxide 20.0 Anion Gap 12 BUN 20 Creatinine 2.9 H Estim Creat Clear Calc 19.1 L eGFR 20 L BUN/Creatinine Ratio 7 L Glucose 124 H Calculated Osmolality 281 Calcium 9.7 Corrected Calcium 9.7 Phosphorus Magnesium Total Bilirubin 1.0 AST 16 ALT 10 Alkaline Phosphatase 59 Total Protein 6.3 Albumin 4.2 Globulin 2.1 L Albumin/Globulin Ratio 2.0 TSH 5.20 H Free T4 Ur Collection Type Clean Catch Urine Color Yellow Urine Clarity Clear Urine pH 5.5 Ur Specific [place] 1.018 Urine Protein Trace Urine Glucose (UA) Negative Urine Ketones Negative Urine Blood Negative Urine Nitrite Negative Urine Bilirubin Negative Urine Urobilinogen (Auto) Negative Ur Leukocyte Esterase Positive Urine RBC 2 Urine WBC 6 H Ur Squamous Epith Cells 1 Urine Bacteria Rare Hyaline Casts 1 Ur Culture Indicated? Not Indicated Ur Random Sodium 23.3 06/07/25 06/07/25 01:24 04:36 WBC 6.4 RBC 3.50 L Hgb 10.5 L Hct 31.7 L MCV 91 MCH 30.0 MCHC 33.1 RDW Std Deviation 41.8 Plt Count 120 L Neut % (Auto) 60 Lymph % (Auto) 29 [place] % (Auto) 8 Eos % (Auto) 3 Baso % (Auto) 0 Neut # (Auto) 3.8 Lymph # (Auto) 1.9 [place] # (Auto) 0.5 Eos # (Auto) 0.2 Baso # (Auto) 0.0 Immature Gran # (Auto) 0.03 H Absolute Nucleated RBC 0.00 Immature Gran % 1 H Nucleated RBC % 0 Sodium 141 143 Potassium 4.9 4.8 Chloride 110 H 109 H Carbon Dioxide 19.3 L 21.0 Anion Gap 12 13 BUN 31 H 34 H Creatinine 2.9 H 2.8 H Estim Creat Clear Calc 19.1 L 19.8 L eGFR 20 L 21 L BUN/Creatinine Ratio 11 L 12 Glucose 107 H 102 Calculated Osmolality 287 292 Calcium 8.5 8.7 Corrected Calcium 8.9 Phosphorus 3.4 Magnesium 2.2 Total Bilirubin 0.9 AST 14 ALT 8 L Alkaline Phosphatase 54 Total Protein 5.5 L Albumin 3.8 Globulin 1.7 L Albumin/Globulin Ratio 2.2 TSH Free T4 1.40 Ur Collection Type Urine Color Urine Clarity Urine pH Ur Specific [place] Urine Protein Urine Glucose (UA) Urine Ketones Urine Blood Urine Nitrite Urine Bilirubin Urine Urobilinogen (Auto) Ur Leukocyte Esterase Urine RBC Urine WBC Ur Squamous Epith Cells Urine Bacteria Hyaline Casts Ur Culture Indicated? Ur Random Sodium Quality Measures Quality Measures VTE prophylaxis Advance care planning discussed with:: patient Assessment & Plan Assessment Current Active Medications: Generic Name Dose Route Start Last Admin Trade Name Freq PRN Reason Stop Dose Admin Acetaminophen 650 mg 06/07/25 00:39 Acetaminophen 325 Mg Tablet PO 07/07/25 00:38 Q6H PRN PAIN (1-3) OR FEVER > 100.4 Heparin Sodium (Porcine) 5,000 unit 06/07/25 00:45 06/07/25 05:13 Heparin Sod Inj 5000 Unit/Ml Vial SC 06/21/25 00:44 5,000 unit Q8HR RILEY Administration Ondansetron HCl 4 mg 06/07/25 00:39 Ondansetron Inj 2 Mg/Ml Inj 2 Ml IVP 07/07/25 00:38 Q6H PRN NAUSEA OR VOMITING Protocol Plan 89-year-old male with HTN and HLD admitted for NIKA on CKD, progressive bilateral lower-extremity weakness, and positive orthostatic hypotension. #NIKA on Chronic Kidney Disease (unclear baseline) Cr 2.9 -> 2.8; renal US shows atrophic left kidney suggesting chronicity. UA bland except mild pyuria; urine Na low (23.3). Volume status mildly dry given positive orthostatics. Plan: * Continue LR 100 cc/hr. * Avoid nephrotoxins. * Renally dose all medications. * Trend BMP daily. * Follow urine osmolality. * Ask patient about any previous labs, imaging, or nephrology follow-up. #Orthostatic Hypotension SBP drop of 39 mmHg without HR compensation likely volume depletion vs autonomic dysfunction. Plan: * Continue IV fluids. * Fall precautions. * Assist with ambulation. * Hold BP meds until med rec + orthostatics improve. * Re-check orthostatics tomorrow, Will consider lower extremity stockings if still orthostatic positive * PT for gait and strength assessment. #Chronic Progressive Lower-Extremity Weakness & Gait Instability Likely multifactorial: deconditioning, possible neuropathy, orthostatic component, age-related decline. Plan: * PT evaluation. * Fall precautions. * Strength monitoring daily. * Outpatient neurology referral. #Hypertension / Hyperlipidemia Med rec pending. Orthostatics positive, so avoid restarting BP meds today. Plan: * Resume home meds once confirmed AND once safe. * Monitor BP trends. #Normocytic Anemia (Hgb 10.5) Stable, asymptomatic. Plan: * Trend CBC. Health maintenance: Diet: Regular DVT prophylaxis: Heparin 5,000u q8h GI prophylaxis: None Code status: DNR Disposition: Med-Surg ----- Plan discussed with attending physician Dr. Philomena Khan MD PGY-1 Internal Medicine Attending Provider Attestation/Addendum I have discussed and was present for the essential components of the history, physical examination, diagnosis, and treatment plan with the resident. I agree with the patient's care as documented by the resident and amended herein by me. Eze Quach DO. Although this document has been carefully reviewed, there may still be some phonetic and other typographical errors. These errors are purely grammatical due to imperfections in the software program and should not be construed in any way to compromise the substance of the patient's medical care during this visit.
--- NOTE | 2025-06-07 12:30 | PC.NURSE ---
Troy Barnes at bedside, agrees to bring med list when she returns.
--- NOTE | 2025-06-07 14:11 | PC.PT ---
Patient is safe to ambulate to the bathroom with a FWW and 1 staff assist. RN made aware.
--- NOTE | 2025-06-07 14:53 | PC.SS ---
DOUBLE CORNER CUTTER conducted bedside contact with the patient to conduct initial assessment and to discuss discharge planning on behalf of the patient.? Patient confirmed demographic information.? Patient resides at home with granddaughter, Molly Andino .? Patient utilizes a walker to assist with ambulation.? Patient does not require the use of home oxygen.? Patient requires assistance with the completion of ADL?s.? Patient?s granddaughter is patient?s auto clutch specialist.? Patient identified granddaughter, Molly Andino; as surrogate medical decision maker.? Patient utilizes [facility] for PCP services.? Patient utilizes [facility] for medication services.? Discharge plan is for the patient to transition to SNF.? No preferred SNF identified.? DOUBLE CORNER CUTTER informed patient that insurance authorization would need to be obtained for SNF placement.? Patient possesses coverage for ambulance transport.? Patient denies possessing history of mental health.? No further discharge needs identified at this time. ?No further intervention required at this time, medical social worker will be available to address any further concerns.? Next of Kin: Molly Andino D/C Plan: SNF
--- NOTE | 2025-06-07 15:09 | PC.SS ---
SNF referral submitted on [facility]. No preferred facility identified. Responses are pending.
--- NOTE | 2025-06-07 15:17 | PC.SS ---
PASSR completed. Patient meets Level I criteria.
[2025-06-07] MEDS: SODIUM CHLORIDE 0.9% 1000 ML 1,000 ML 80 ML IV (15:38)
[2025-06-08] VITALS (9 sets, daily range): BP systolic 111–176; BP diastolic 54–79; PULSE 52–73; RESP 17–99; TEMP 36.3–36.6; O2SAT 95–99; BMI 15.0
[2025-06-08] MEDS: SODIUM CHLORIDE 0.9% 1000 ML 1,000 ML 80 ML IV (04:12)
[2025-06-08] MEDS: HEPARIN SOD INJ 5000 UNIT/ML VIAL SC (05:09)
[2025-06-08 05:32] LABS: Basophils # (Auto) 0.0 Thou/mm3 (0.0-0.2); Basophils % (Auto) 0 % (0-2.5); Eosinophils # (Auto) 0.3 Thou/mm3 (0.0-0.5); Eosinophils % (Auto) 5 % (0-10); Hematocrit 27.2 % (41.0-53.0); Hemoglobin 9.3 g/dL (13.5-16.0); Immature Granulocytes Auto 0.03 Thou/mm3 (0.00-0.00); Lymphocytes # (Auto) 2.1 Thou/mm3 (1.0-4.8); Lymphocytes % (Auto) 36 % (10-50); Mean Corpuscular HGB Conc 34.2 g/dl (31.0-37.0); Mean Corpuscular Hemoglobin 31.0 pg (25.0-35.0); Mean Corpuscular Volume 91 fL (80-100); Monocytes # (Auto) 0.4 Thou/mm3 (0.0-0.8); Monocytes % (Auto) 8 % (0-12); Neutrophils # (Auto) 2.9 Thou/mm3 (1.8-7.7); Neutrophils % (Auto) 51 % (37-80); Nucleated Red Blood Cell # 0.00 Thou/mm3 (0.00-0.00); Nucleated Red Blood Cell % 0 /100 WBC (0); Platelet Count 131 Thou/mm3 (140-440); RDW Standard Deviation 41.9 fL (35.1-43.9); Red Blood Count 3.00 Miln/mm3 (4.50-5.90); White Blood Count 5.7 Thou/mm3 (3.8-10.6)
[2025-06-08 06:09] LABS: Alanine Aminotransferase < 7 U/L (10-49); Albumin, Serum 3.5 gm/dL (3.4-4.8); Albumin/Globulin Ratio 2.1 (1.2-2.2); Alkaline Phosphatase 45 U/L (46-116); Anion Gap 10 (7-16); Aspartate Amino Transferase 14 U/L (0-34); BUN/Creatinine Ratio 9 Ratio (12-20); Bilirubin,Total 0.6 mg/dL (0.3-1.2); Blood Urea Nitrogen 24 mg/dL (9-23); Calcium 8.3 mg/dL (8.3-10.6); Calcium (Corrected) 8.7 mg/dL (8.5-10.1); Carbon Dioxide 22.4 mMol/L (20.0-31.0); Chloride 113 mMol/L (98-107); Creatinine (Component) 2.6 mg/dL (0.6-1.3); Estimated Creatinine Clearance 21.3 mL/min (>60); Globulin 1.7 gm/dL (2.3-3.5); Glucose 99 mg/dL (74-106); Osmolality,Calculated 292 (275-295); Potassium 4.0 mMol/L (3.4-5.1); Sodium 145 mMol/L (136-145); Total Protein 5.2 gm/dL (5.7-8.2); eGFR 23 See Note
--- NOTE | 2025-06-08 13:36 | PC.SS ---
SS was informed by family and pt wish to return home with HH. NO SNF. SS updated [facility] [place]
--- NOTE | 2025-06-08 15:32 | ESDS_ITS ---
Planned Discharge Date 06/08/25 DS: Providers Provider Date of admission: 06/07/25 00:39 Primary care physician: Physician No Primary/Family Admitting Provider: Devin Dobbs MD Attending Provider on Admission: Devin Dobbs MD Consults: 06/07/25 00:37 Referral Physical Therapy Routine Comment: Physician Instructions: Attending Provider on DC: Jamie Quach DO Discharging Provider: Sobeida Khan MD DS: Diagnosis Problem List Completed Was Problem List Reviewed/Reconciled?: Yes Hospital Course Hospital Course Hospital course: 89-year-old male with hypertension and hyperlipidemia who presented with several months of progressive bilateral lower-extremity weakness and recurrent ground- level falls. He was unable to rise from a chair the day of admission, prompting evaluation. He was found to have creatinine 2.9, improving to 2.6 during hospitalization. Renal ultrasound showed an atrophic left kidney, suggesting chronicity. No prior known CKD history per patient. UA bland, no UTI. The improvement with IV fluids suggests NIKA on possible underlying CKD. He also had positive orthostatic hypotension with symptomatic dizziness. IV fluids were continued, and symptoms mildly improved, with repeat orthostatic vitals on day of discharge which was negative. Physical Therapy evaluated him and recommended SNF due to gait instability, poor endurance, and fall risk. Patient and family declined SNF placement, stating he feels safe at home and his granddaughter lives with him. After discussion, home health and home-based physical therapy were arranged. By discharge, he denied chest pain, shortness of breath, nausea, vomiting, or urinary symptoms. He remained hemodynamically stable. He is medically stable for discharge home today. Diagnosis during admission: #NIKA on Chronic Kidney Disease #Orthostatic Hypotension, resolved #Chronic Progressive Lower-Extremity Weakness & Gait Instability #Hypertension / Hyperlipidemia #Normocytic Anemia Discharge Recommendations: -Follow up with PCP within 1 week of discharge -Start amlodipine 5 mg once daily. -Obtain repeat renal panel blood work in 1 week (obtain order from your PCP) -Continue to intake plenty of fluids to help your kidneys recover and to prevent kidney injury -Take your blood pressure daily and record a log to bring to your PCP -Hold the following medications: chlorthalidone and lisinopril due to acute kidney injury until follow up with your PCP -Continue rest of medications as previously prescribed -Return to the ED or call EMS if symptoms return and/or worsen. ----- Plan discussed with attending physician Dr. Philomena Khan MD PGY-1 Internal Medicine Time Spent with Patient Time attestation: Total time spent providing and/or coordinating discharge services: Time spent: Greater than 30 minutes Home Health Home Health Referral Orders: 06/08/25 13:53 Home Health Referral Routine Reason For Exam: debility Home-Bound The patient must either because of illness or injury, need the aid of supportive devices such as crutches, canes, wheelchairs, and walkers; the use of special transportation; or the assistance of another person in order to leave their place of residence; OR have a condition such that leaving his or her home is medically contraindicated. In addition, the patient also meets the following criteria: patient is normally unable to leave the home and leaving home requires considerable taxing effort. Addendum to Home Health Certification Practitioner's Certification: I certify that the patient has been under my care in the hospital and the care of attending physician (see below). We had a [id number] encounter on (see date below). My clinical findings indicate that the patient is home bound per the above criteria and the Home Health Services noted in these orders are medically necessary. The primary reason for the [id number] encounter is related to the fact that the patient requires home health services. Date Certifying [id number] Physician Encounter: 06/07/25 Physician's Name who will Assume Oversight for HH Services: Physician No Primary/Family OIL PIT ATTENDANT - Community Resources: No PT to Evaluate: Yes PT to evaluate and provide a treatmnet plan to increase patient's mobility and strength. Wound Care: No IV Therapy: No Discontinue PICC Line Once Treatment Complete: No RN Safety Evaluation: Yes RN to evaluate and create a plan of care that will produce positive outcomes. Palliative Treatment: No Palliative treatment and evaluate the need for hospice. Home Health Aide - Personal Care: No Home Health Aide to assist with any ADL's. Exam Vital Signs Temp Pulse Resp BP Pulse Ox O2 Del Method O2 Flow Rate 97.8 F 64 17 155/72 H 99 Room Air 2 06/08/25 12:00 06/08/25 12:00 06/08/25 12:00 06/08/25 12:47 06/08/25 12:00 06/08/25 12:00 06/08/25 04:00 Narrative Exam General: AOx3, no acute distress, able to speak full sentences. HEENT: NC/AT, mucous membranes moist, bilateral sclera anicteric Cardiovascular: regular rate and rhythm, S1/S2 present, no murmurs appreciated Pulmonary: clear to auscultation bilaterally, no rales/rhonchi/wheezes Abdominal: soft, non-tender, non-distended, no rebound/guarding, normal bowel sounds present Musculoskeletal: normal ROM, no peripheral edema, bilateral lower extremities strength 4 out of 5, bilateral upper extremities strength 5 out of 5 Neuro: CN II-XII intact, no focal deficits Discharge Plan Plan Patient Disposition: Home w/HOME HEALTH Patient condition on transfer: Stable Care Plan Goals: Discharge Recommendations: -Follow up with PCP within 1 week of discharge -Start amlodipine 5 mg once daily. -Obtain repeat renal panel blood work in 1 week (obtain order from your PCP) -Continue to intake plenty of fluids to help your kidneys recover and to prevent kidney injury -Take your blood pressure daily and record a log to bring to your PCP -Hold the following medications: chlorthalidone and lisinopril due to acute kidney injury until follow up with your PCP -Continue rest of medications as previously prescribed -Return to the ED or call EMS if symptoms return and/or worsen. Prescriptions/Referrals Prescriptions/Med Rec: New amlodipine 5 mg tablet 5 mg PO QDAY 30 Days Qty: 30 0RF Continued permethrin 60 GM cream 1 appln TOP UD Qty: 2 0RF Rx Instructions: Apply from the neck down leave on skin or 12 hours then wash out completely repeat this after 2 weeks. tamsulosin 0.4 mg capsule 0.8 mg PO Q24H fluticasone propionate 50 mcg/actuation spray,suspension 2 spray INTRANASAL .Q24 potassium chloride 20 mEq tablet,ER particles/crystals 20 meq PO DAILY propranolol 40 mg tablet 40 mg PO Q12H terbinafine HCl 250 mg tablet 250 mg PO DAILY metformin 500 mg tablet extended release 24 hr 500 mg PO DAILY magnesium oxide 400 mg (241.3 mg magnesium) tablet 400 mg PO DAILY mirtazapine 15 mg tablet 15 mg PO .BEDTIME finasteride 5 mg tablet 5 mg PO DAILY cetirizine 10 mg tablet 10 mg PO PRN PRN (Reason: allergy symptoms) Held lisinopril 40 mg tablet 40 mg PO DAILY Hold Instructions: Resume on 06/22/25. Hold until you see PCP and follow up renal panel chlorthalidone 25 mg tablet 25 mg PO DAILY Hold Instructions: Resume on 06/22/25. Hold until follow up with PCP and repeat renal panel Referrals: No Primary/Family,Physician [Primary Care Provider] Patient/Caregiver Discharge Instructions Discharge Activity: activity as tolerated Education Materials: Anemia and Kidney Disease, Kidney Disease Fluid Intake, Orthostatic Hypotension Print Language: Amharic Stand Alone Forms: [employer] Award Info., Patient Portal Info Letter Discharge Order Discharge Orders: Discharge (Routine); Ordered 06/08/25 Ordered By: Ninfa Ponce Quality Discharge Quality Measures VTE prophylaxis Attestestation Attestation I have discussed and was present for the essential components of the discharge history, physical examination, diagnosis, and discharge treatment plan with the resident. I agree with the patient's discharge care as documented by the resident and amended herein by me. Eze Quach DO. The patient understood all discharge instructions, all questions were answered satisfactorily. The patient was instructed to return to the Emergency Department is symptoms worsened or persisted. Patient discharged home with home health, orthostasis resolved with fluids. Patient will follow-up with our [facility] at which time he can be referred to neurology for further workup. Patient was stable, afebrile, tolerating p.o. intake and ambulatory at time of discharge home with home health for physical therapy Although this document has been carefully reviewed, there may still be some phonetic and other typographical errors. These errors are purely grammatical due to imperfections in the software program and should not be construed in any way to compromise the substance of the patient's medical care during this visit.
--- NOTE | 2025-06-11 11:33 | PC.CM ---
Patient was declined by all home health agencies. I called patient and I spoke to his granddaughter and the patient and I let him know that they will not have home health because no agency accepted his insurance. I let the granddaughter know to follow up with patients PCP to see if they can help finding an agency. Granddaughter states she understands and she thanked me for the call.
[2025-06-12 06:38] LABS: Osmolality, Urine* 391 mOsm/kg (50-1200)
== END 2025-06-08 15:41 | disposition home or self-care (01) ==
LOC: SERX 23:29 → S3SX 06-07 03:21 → SERHOLD 06-07 08:02 → S3SX 06-07 08:03
PROVIDERS: Admitting Provider Internal Medicine; Emergency Provider Emergency Medicine; Visit Provider Internal Medicine
DX: N17.9 Acute kidney failure, unspecified (principal); I95.1 Orthostatic hypotension; R53.1 Weakness; I12.9 Hypertensive chronic kidney disease with stage 1 through stage 4 chronic kidney disease, or unspecified chronic kidney disease; N18.9 Chronic kidney disease, unspecified; D63.1 Anemia in chronic kidney disease; E78.00 Pure hypercholesterolemia, unspecified; Z66 Do not resuscitate; R26.89 Other abnormalities of gait and mobility
CPT/HCPCS: 36415; 70450; 76770; 80048; 80053; 81001; 83735; 83935; 84100; 84300; 84439; 84443; 85025; 93005; 96360; 96361; 96372; 97162; 99283; G0378; J1644; J7030; J7120